=== PATIENT | female | born 1995 | race Caucasian/White ===

== ENCOUNTER → 2019-12-07 16:00 | Outpatient (CLI) | payer MEDICAID, SELFPAY ==
--- NOTE | 2019-12-07 16:04 | US_ITS ---
STUDY: FIRST TRIMESTER OBSTETRICAL ULTRASOUND REASON FOR EXAM: Female, 24 years old DATING LMP: 10/01/2019. TECHNIQUE: Transvaginal. TECHNICAL QUALITY: Adequate. PRIOR ULTRASOUND: None. FINDINGS: Gravid uterus measures 10.9 x 6.1 x 8.2 cm. Intrauterine gestational sac. There is a single live intrauterine gestation. Cardiac activity is documented, with heart rate of 152. Mean sonographic estimated gestational age based on crown-rump length measures 9 weeks 5 days. Normal yolk sac. Right ovary measures 4.2 x 2.1 x 2.5 cm. There is a 1.9 x 2.1 x 1.7 cm hypoechoic lesion consistent with complex cysts. Left ovary is not visualized. No free fluid in the cul-de-sac. US/Init OB < 14Wks US IMPRESSION: Single live intrauterine gestation with EGA 9 weeks 5 days. Electronically Signed: Vale Long MD at 17:27 EDT Tel , Service support ,
== END ==
PROVIDERS: Referring Provider Obstetrics & Gynecology; Visit Provider Obstetrics & Gynecology
DX: Z34.90 Encounter for supervision of normal pregnancy, unspecified, unspecified trimester (principal)
CPT/HCPCS: 76801

== ENCOUNTER 2019-12-07 16:29 | Emergency (ER) | payer MEDICAID, SELFPAY ==
[2019-12-07 16:31] VITALS: BP 145/89; PULSE 85; PULSE 96; RESP 20; RESP 22; TEMP 35.9; O2SAT 100; O2SAT 99; BMI 42.7
--- NOTE | 2019-12-07 16:50 | ED.VISSUMM ---
- ER Visit Summary Date of Service: 12/07/19 Chief Complaint: Asthma History of Present Illness: The patient is a 24 F who presents with a asthma attack that occurred today. Patient was getting an ultrasound done for her when she developed some shortness of breath and felt like an asthma attack was coming on. Patient states she feels some tightness in her chest at times. Patient admits to a slight cough with some white and clear sputum. Patient denies any fevers or chills. Patient denies any sore throat or rhinorrhea. Patient denies any ear pain. Patient admits to related nausea and vomiting but denies any nausea at the present time. Physical Examination: Vital signs are stable. Patient is afebrile. Patient is in no acute distress. Oral mucosa is pink and moist. Neck is supple. Trachea is midline. There is no JVD. Heart was regular rate and rhythm. Lungs showed diffuse expiratory wheezing. There is good respiratory effort. There are no retractions. Abdomen is soft. Bowel sounds are normal. There is no tenderness. Cranial nerves II through XII are intact. There are no focal motor or sensory deficits. Emergency Department Course and Treatment: Patient was given a DuoNeb aerosol here. Patient had mild end expiratory wheezing on reevaluation. Patient was given an albuterol inhaler to take home. Patient was given a prescription for an albuterol inhaler. Patient was instructed to follow-up with her primary care physician in 5 to 7 days. Patient understood and was agreeable with the plan. All questions were answered. Disposition: Discharge home Impression: Asthma exacerbation This note was generated with [employer] ([employer]) dictation software. It may contain incorrect words, spelling, and punctuation that were not noted in review of the chart prior to signing ED Disposition - Plan for ED Patient: Disposition: Home or Assisted Living Diagnosis: Asthma exacerbation Instructions: ED REACTIVE AIRWAY DISEASE Adult Prescriptions: Albuterol Inhaler [Ventolin Hfa] 2 puff INHALATION Q4H PRN PRN #1 inhaler PRN Reason: Wheezing Prescription Printed Referrals: Care Physician,No Primary [Primary Care Provider] - 3-5 Days
[2019-12-07 17:13] VITALS: PULSE 82; RESP 22
[2019-12-07] MEDS: Ipratropium/Albuterol Sulfate 3 ML AMPUL.NEB INHALATION (17:13)
[2019-12-07 18:31] VITALS: PULSE 73; RESP 15; O2SAT 98
[2019-12-07 18:35] VITALS: BP 99/57; PULSE 87; RESP 15; O2SAT 99
== END 2019-12-07 18:48 | disposition home or self-care (01) ==
LOC: ED 16:58
PROVIDERS: Emergency Provider Emergency Medicine
DX: O26.899 Other specified pregnancy related conditions, unspecified trimester (principal); J45.901 Unspecified asthma with (acute) exacerbation; O99.210 Obesity complicating pregnancy, unspecified trimester
CPT/HCPCS: 76801; 94640; 99282